=== PATIENT | female | born 1980 | race Caucasian/White ===

== ENCOUNTER 2017-10-20 20:32 | Emergency (ER) | payer BC, OTHER ==
[2017-10-20 20:49] VITALS: BP 128/69
[2017-10-20] MEDS ORDERED: Albuterol 2.5 MG/3 ML NEB.SOL* (0.083%) INH ONE (20:58)
--- NOTE | 2017-10-20 20:58 | UC ---
Respiratory Complaint HPI - HPI Summary HPI Summary: C/O cough that won't stop with SOB over the past 1 1/2 weeks. Chills - History of Current Complaint Chief Complaint: UCRespiratory Stated Complaint: COUGH,SOB Time Seen by Provider: 10/20/17 20:51 Hx Obtained From: Patient Hx Last Menstrual Period: DEPO PROVERA ?: No Onset/Duration: Sudden Onset, Lasting Weeks - 1 1/2, Still Present Timing: Constant Severity Initially: Moderate Severity Currently: Severe Character: Cough: Nonproductive Aggravating Factors: Recumbent Position Alleviating Factors: Nothing Associated Signs And Symptoms: Positive: Dyspnea, Chills, Pleuritic Chest Pain, URI, Nasal Congestion - Allergies/Home Medications Allergies/Adverse Reactions: Allergies Allergy/AdvReac Type Severity Reaction Status Date / Time No Known Allergies Allergy Verified 10/20/17 20:49 Home Medications: Home Medications medroxyPROGESTERone ACETATE* [DEPO-Provera*] 10/20/17 [History] PMH/Surg Hx/FS Hx/Imm Hx Previously Healthy: Yes - Surgical History Surgical History: Yes Surgery Procedure, Year, and Place: x2 - Family History Known Family History: Negative: Cardiac Disease, Hypertension, Diabetes - Social History Occupation: Employed Full-time Lives: With Family Alcohol Use: Occasionally Substance Use Type: None Smoking Status (MU): Light Every Day Tobacco Smoker Type: Cigarettes Have You Smoked in the Last Year: Yes Household Exposure Type: Cigarettes Cessation Counseling: Patient Advised to Stop - Immunization History Most Recent Influenza Vaccination: NOT CURRENT Review of Systems ENT: Sore Throat Respiratory: Shortness Of Breath, Cough Is Patient Immunocompromised?: No All Other Systems Reviewed And Are Negative: Yes Physical Exam Triage Information Reviewed: Yes Appearance: No Pain Distress, Well-Nourished, Ill-Appearing - mild Vital Signs: Initial Vital Signs Temp 99.9 F 10/20/17 20:44 Pulse 83 10/20/17 20:44 Resp 18 10/20/17 20:44 BP 128/69 10/20/17 20:44 Pulse Ox 100 10/20/17 20:44 Vital Signs Reviewed: Yes Eyes: Positive: Conjunctiva Clear ENT: Positive: Pharynx normal, Nasal congestion, TMs normal Neck exam: Normal Respiratory: Positive: Wheezing - expiratory wheeze with coughing Cardiovascular Exam: Normal Musculoskeletal Exam: Normal Neurological Exam: Normal Skin Exam: Normal UC Diagnostic Evaluation - Laboratory O2 Sat by Pulse Oximetry: 100 Respiratory Course/Dx - Differential Dx/Diagnosis Differential Diagnosis/HQI/PQRI: Asthma, Lower Resp Infection, Sinusitis Provider Diagnoses: Acute URI. Acute bronchospasm Discharge - Discharge Plan Condition: Stable Disposition: HOME Prescriptions: predniSONE TAB* [Deltasone TAB*] 20 mg PO DAILY #18 tab Patient Education Materials: Upper Respiratory Infection (ED), Bronchospasm (ED ), Prednisone (By mouth), Albuterol (By breathing) Referrals: No Primary Care Phys,NOPCP [Primary Care Provider] - Additional Instructions: Please quit smoking.
[2017-10-20] MEDS ORDERED: Albuterol HFA INHALER* 8 gm MDI INH ONE (21:10)
[2017-10-20] MEDS ORDERED: predniSONE TAB* 20 MG PO ONE (21:31)
== END 2017-10-20 21:44 | disposition home or self-care (01) ==
LOC: UCCORT 20:32
DX: J06.9 Acute upper respiratory infection, unspecified (principal); J98.01 Acute bronchospasm; Z72.0 Tobacco use; Z72.89 Other problems related to lifestyle
CPT/HCPCS: 99203; A9270-GY; G0463; J7512

== ENCOUNTER 2017-10-26 09:43 | Emergency (ER) | payer OTHER ==
[2017-10-26 10:00] VITALS: BP 114/60
--- NOTE | 2017-11-05 09:34 | UC ---
Respiratory Complaint HPI - HPI Summary HPI Summary: COUGH X 1 WEEK COUGH IS PRODUCTIVE WITH YELLOW SPUTUM + NASAL CONGESTION, PND, NO FEVER, NO CHILLS , NO SOB - History of Current Complaint Chief Complaint: UCRespiratory Stated Complaint: COUGH RECHECK Time Seen by Provider: 10/26/17 10:08 Hx Obtained From: Patient Hx Last Menstrual Period: DEPO PROVERA ?: No Onset/Duration: Gradual Onset, Lasting Days - 7, Still Present Timing: Constant Severity Initially: Moderate Severity Currently: Moderate Pain Intensity: 0 Pain Scale Used: 0-10 Numeric Character: Cough: Productive - YELLOW Aggravating Factors: Exertion, Deep Breaths Alleviating Factors: Nothing Associated Signs And Symptoms: Positive: URI, Nasal Congestion. Negative: Fever , Chills, Calf Pain, Calf Swelling - Allergies/Home Medications Allergies/Adverse Reactions: Allergies Allergy/AdvReac Type Severity Reaction Status Date / Time No Known Allergies Allergy Verified 10/20/17 20:49 PMH/Surg Hx/FS Hx/Imm Hx Previously Healthy: Yes - Surgical History Surgical History: Yes Surgery Procedure, Year, and Place: x2 - Family History Known Family History: Negative: Cardiac Disease, Hypertension, Diabetes - Social History Alcohol Use: Occasionally Substance Use Type: None Smoking Status (MU): Light Every Day Tobacco Smoker Type: Cigarettes Have You Smoked in the Last Year: Yes Household Exposure Type: Cigarettes - Immunization History Most Recent Influenza Vaccination: NOT CURRENT Review of Systems Constitutional: Negative Skin: Negative Eyes: Negative ENT: Nasal Discharge Respiratory: Cough Cardiovascular: Negative Gastrointestinal: Negative Is Patient Immunocompromised?: No All Other Systems Reviewed And Are Negative: Yes Physical Exam Triage Information Reviewed: Yes Appearance: Well-Appearing, No Pain Distress, Well-Nourished Vital Signs: Initial Vital Signs Temp 97.8 F 10/26/17 09:55 Pulse 79 10/26/17 09:55 Resp 18 10/26/17 09:55 BP 114/60 10/26/17 09:55 Pulse Ox 99 10/26/17 09:55 Vital Signs Reviewed: Yes Eye Exam: Normal Eyes: Positive: Conjunctiva Clear ENT: Positive: Normal ENT inspection, Hearing grossly normal, Pharynx normal, Nasal drainage Neck: Positive: Supple, Nontender, No Lymphadenopathy Respiratory: Positive: Chest non-tender, Lungs clear, Normal breath sounds, No respiratory distress Cardiovascular Exam: Normal Cardiovascular: Positive: RRR, No Murmur Skin Exam: Normal Diagnostic Evaluation - Laboratory O2 Sat by Pulse Oximetry: 99 Respiratory Course/Dx - Differential Dx/Diagnosis Provider Diagnoses: VIRAL BRONCHITIS Discharge - Discharge Plan Condition: Stable Disposition: HOME Prescriptions: Guaifenesin-Codeine [Cheratussin AC] 10 ml PO Q8H PRN #120 ml MDD 30 ml PRN Reason: Cough Patient Education Materials: Acute Bronchitis (ED) Referrals: No Primary Care Phys,NOPCP [Primary Care Provider] - If Needed
== END 2017-10-26 10:27 | disposition home or self-care (01) ==
LOC: UCCORT 09:43
DX: J20.8 Acute bronchitis due to other specified organisms (principal); R09.81 Nasal congestion; F17.210 Nicotine dependence, cigarettes, uncomplicated
CPT/HCPCS: 99212; G0463

== ENCOUNTER 2021-03-21 17:53 | Inpatient (IN) ==
[2021-03-21] MEDS ORDERED: Dexamethasone IV 4 MG/ML 5 ML VIAL (20 MG) IVPB ONE (21:38)
[2021-03-21] MEDS ORDERED: Acetaminophen IV 1 GM/100ML 1,000 MG/100 ML VIAL IVPB ONE (21:38)
[2021-03-21] MEDS ORDERED: Dexamethasone IV 10 MG in NS 0.9% 50 ML IVPB ONE (22:00)
[2021-03-22] MEDS: Dexamethasone IV 4 MG/ML VIAL 1 ml VIAL IV SLOW PU SCH ×3 (06:00→21:24)
[2021-03-22] MEDS: NORETHINDRONE 0.35 MG PO SCH (07:40)
[2021-03-22] MEDS: Acetaminophen IV 1 GM/100ML 100 ML IVPB SCH ×2 (10:17→17:39)
[2021-03-23] MEDS: Acetaminophen IV 1 GM/100ML 100 ML IVPB SCH (01:45)
[2021-03-23] MEDS: Dexamethasone IV 4 MG/ML VIAL 1 ml VIAL IV SLOW PU SCH ×2 (05:46→13:55)
[2021-03-23] MEDS: NORETHINDRONE 0.35 MG PO SCH (07:54)
[2021-03-23 11:17] VITALS: BP 132/64
== END 2021-03-23 15:00 | disposition home or self-care (01) | DRG 347 ==
LOC: ED 17:53 → SSU 23:19
PROVIDERS: ADMIT Hospitalist; ATTEND Internal Medicine